=== PATIENT | male | born 1945 | race Caucasian/White ===

== ENCOUNTER → 2023-04-13 | Outpatient (REF) | payer MEDICARE, OTHER | LOC: M SFHCDERM 13:55 | PROVIDERS: ATTEND Nurse Practitioner Family | DX: L57.0 Actinic keratosis (principal); D23.4 Other benign neoplasm of skin of scalp and neck ==

== ENCOUNTER → 2024-03-07 | Outpatient (REF) | payer MEDICARE, OTHER | LOC: M LAB REF 07:40 | PROVIDERS: ATTEND Plastic Surgery Surgery of the Hand | DX: C44.1121 Basal cell carcinoma of skin of right upper eyelid, including canthus (principal) ==

== ENCOUNTER → 2024-05-11 | Outpatient (REF) | payer MEDICARE, OTHER | LOC: M LAB REF 17:46 | PROVIDERS: ATTEND Plastic Surgery Surgery of the Hand | DX: C44.1121 Basal cell carcinoma of skin of right upper eyelid, including canthus (principal) ==